=== PATIENT | male | born 1980 | race Caucasian/White ===

== ENCOUNTER → 2021-02-20 | Outpatient (CLI) | payer OTHER ==
[~2021-02-20] MED LIST: ESOM20; OXYACE5T PO; [UNRECOGNIZED DRUG - REMARK]
== END | disposition home or self-care (01) ==
LOC: LAB SHORT 08:10 → LAB 08:10
DX: D48.5 Neoplasm of uncertain behavior of skin (principal)
CPT/HCPCS: 88305

== ENCOUNTER 2022-02-11 06:17 | Day surgery (SDC) | payer BC ==
[~2022-02-11] VITALS: Ht 185.4 cm; Wt 92.2 kg
--- NOTE | 2022-02-11 08:08 | NUR ---
02/11/22 0808 Manish Pinon LIDOCAINE 1% 30 MLS MIXED W/ 0.15 ML EPI PER ORDER TO MAKE LIDOCAINE 1% 1:200,000 FOR INJECTION AT OPSITE BY DR JOYCE. 2 MLS INJECTED.
== END 2022-02-11 09:35 | disposition home or self-care (01) ==
LOC: ORSCSDS 06:17
PROVIDERS: Otolaryngology
PROC: 0JB50ZZ Excision of Left Neck Subcutaneous Tissue and Fascia, Open Approach (ICD-10-PCS; principal; 2022-02-11 07:30)
PROC: 0JB40ZZ Excision of Right Neck Subcutaneous Tissue and Fascia, Open Approach (ICD-10-PCS; principal; 2022-02-11 07:30)
DX: D17.0 Benign lipomatous neoplasm of skin and subcutaneous tissue of head, face and neck (principal)
CPT/HCPCS: 88304; A9270; J0171; J1100; J2250; J2370; J2405; J2704; J3010; J7120

== ENCOUNTER → 2022-06-23 | Outpatient (CLI) | payer BC | END | disposition home or self-care (01) | LOC: PLD 08:07 → LAB SHORT 08:07 | DX: L82.1 Other seborrheic keratosis (principal) | CPT/HCPCS: 88305 ==